=== PATIENT | female | born 1975 | race Caucasian/White ===

== ENCOUNTER 2018-11-07 17:23 | Emergency (ER) | payer OTHER ==
[~2018-11-07] VITALS: Ht 172.7 cm; Wt 145.2 kg
[~2018-11-07 17:23] MED LIST: DIABETES; DIOVAN 80 MG TA80 M1 PO; IBUPROFEN 600600 M1 PO; INVOKANA100 MG PO; JARDIANCE10 MG PO; KLOR-CON 1010 MEQ PO; MAGNESIUM OXID400 MG PO; NAPROSYN500 MG PO; ONDANSETRON HCL4 M2 PO; TORADOL 10 MG T10 MG PO; UNICOMPLEX M TA1 TA1 PO
[2018-11-07] MEDS ORDERED: ZYRTEC10 M5 PO (17:38)
[2018-11-07] MEDS ORDERED: KEFLEX500 M1 PO (17:52)
[2018-11-07] MEDS ORDERED: GLIPIZIDE 10 MG10 MG PO (18:11)
[2018-11-07 18:17] VITALS: BP 168/83
== END 2018-11-07 18:10 | disposition home or self-care (01) ==
LOC: ER 17:23
DX: L03.032 Cellulitis of left toe (principal); I10 Essential (primary) hypertension; E11.9 Type 2 diabetes mellitus without complications; Z88.0 Allergy status to penicillin